=== PATIENT | female | born 1960 | race Caucasian/White ===

== ENCOUNTER 2018-01-24 19:10 | Emergency (ER) | payer MEDICARE, OTHER, MEDICAID ==
[~2018-01-24] VITALS: Ht 170.1 cm; Wt 90.7 kg
[~2018-01-24 19:10] MED LIST: ALPRAZOLAM0.25 M2 PO; FLEXERIL10 MG PO; GABAPENTIN TAB600 MG PO; KEPPRA500 MG PO; LEVOTHYROXIN0.075 M1 PO; MEDROL DOSEPAK4 MG PO; METHOCARBAMOL500 M1 PO; MORPHINE SULFAT15 M7 PO; OXYCODONE HCL5 MG PO; PANTOPRAZOLE SO40 MG PO; TRAZADONE HYDR100 MG PO; VICODIN 500 MG-1 TAB PO
== END 2018-01-24 23:26 | disposition short-term general hospital (02) ==
LOC: ED 19:10
DX: S82.832A Other fracture of upper and lower end of left fibula, initial encounter for closed fracture (principal); S82.142A Displaced bicondylar fracture of left tibia, initial encounter for closed fracture; K21.9 Gastro-esophageal reflux disease without esophagitis; G89.29 Other chronic pain; E03.9 Hypothyroidism, unspecified; E11.9 Type 2 diabetes mellitus without complications; Z98.890 Other specified postprocedural states; Z90.49 Acquired absence of other specified parts of digestive tract; Z90.710 Acquired absence of both cervix and uterus; Z79.899 Other long term (current) drug therapy; W10.8XXA Fall (on) (from) other stairs and steps, initial encounter; Y93.89 Activity, other specified; Y92.89 Other specified places as the place of occurrence of the external cause; Y99.9 Unspecified external cause status

== ENCOUNTER 2022-12-27 02:19 | Inpatient (IN) | payer OTHER ==
[~2022-12-27] VITALS: Ht 172.7 cm; Wt 92.8 kg
[2022-12-27] VITALS (7 sets, daily range): BP systolic 115–148; BP diastolic 56–70
[2022-12-27 02:43] LABS: BASO % 0.5 % (0.0-1.0); EOS # 0.1 10*3/uL (0.0-0.4); EOS % 1.1 % (1.0-4.0); HEMATOCRIT 35.5 % (37.0-47.0); LYMPH # 1.2 10*3/uL (1.3-4.4); LYMPH % 18.7 % (27.0-41.0); MEAN CELL VOLUME 83.7 fl (81.0-99.0); MEAN CORPUSCULAR HGB 27.6 pg (27.0-31.0); MEAN PLATELET VOLUME 9.8 fl (9.6-12.3); MONO # 0.6 10*3/uL (0.1-1.0); MONO % 9.8 % (3.0-9.0); NEUT # 4.5 10*3/uL (2.3-7.9); NEUT % 69.4 % (47.0-73.0); PLATELET COUNT AUTOMATED 218 10*3/uL (130-400); RED BLOOD COUNT 4.24 10*6/uL (4.10-5.10); RED CELL DISTRI WIDTH 13.5 % (0-14.5); WHITE BLOOD COUNT 6.4 10*3/uL (4.8-10.8)
[2022-12-27] MEDS ORDERED: LEVOTHYROXINE75 MCG PO (02:53)
[2022-12-27] MEDS ORDERED: IBU800 M1 PO (02:53)
[2022-12-27 02:54] LABS: BILIRUBIN Negative (Negative); BLOOD Negative (Negative); CLARITY Clear (Clear); COLOR Yellow (Yellow); GLUCOSE Negative (Negative); KETONE 3+ (Negative); LEUKO ESTERASE 1+ (Negative); NITRITE Negative (Negative)
[2022-12-27] MEDS ORDERED: ESOMEPRAZOLE MA40 M1 PO (02:54)
[2022-12-27] MEDS ORDERED: ONDANSETRON HYDR4 M1 PO (02:54)
[2022-12-27] MEDS ORDERED: BUPRENORPHINE HY8 MG SL (02:55)
[2022-12-27] MEDS ORDERED: GABAPENTIN800 MG PO (02:55)
[2022-12-27] MEDS ORDERED: METFORMIN HYD1000 MG PO (02:56)
[2022-12-27 02:59] LABS: ALKALINE PHOSPHATASE 177 U/L (46-116); BUN 9 mg/dl (9-23); CHLORIDE 94 mmol/L (98-107); POTASSIUM 3.6 mmol/L (3.4-5.1); SGPT/ALT 26 U/L (10-49); TOTAL PROTEIN 9.1 gm/dL (6.0-8.0)
[2022-12-27 03:01] LABS: EPITHELIAL CELLS 21-30
[2022-12-27 03:02] LABS: BACTERIA 1+
[2022-12-27] MEDS ORDERED: TRIAMTERENE & H1 CAP PO (03:29)
[2022-12-27] MEDS ORDERED: NAMZARIC 28 MG1 EACH PO (03:29)
[2022-12-27] MEDS ORDERED: METHOCARBAMOL750 M1 PO (03:31)
[2022-12-27 08:18] LABS: BUN 8 mg/dl (9-23); CHLORIDE 102 mmol/L (98-107)
[2022-12-27 08:24] LABS: FREE T4 0.74 ng/dl (0.89-1.76); THYROID STIM HORMONE (HS) 0.886 uIU/ml (0.550-4.780)
[2022-12-27 08:54] LABS: VITAMIN D, 25-HYDROXY 31.7 ng/mL (30-100)
[2022-12-27 11:42] LABS: BILIRUBIN Negative (Negative); BLOOD Negative (Negative); CLARITY Clear (Clear); COLOR Yellow (Yellow); GLUCOSE Negative (Negative); KETONE 2+ (Negative); LEUKO ESTERASE Negative (Negative); NITRITE Negative (Negative)
[2022-12-27 12:09] LABS: BACTERIA TRACE; RBC 0-2 rbc/hpf (0-2); WBC 0-2 wbc/hpf (0-5)
[2022-12-28] VITALS: BP 111/58
[2022-12-28 07:05] LABS: BASO % 0.8 % (0.0-1.0); EOS # 0.1 10*3/uL (0.0-0.4); EOS % 2.1 % (1.0-4.0); HEMATOCRIT 37.4 % (37.0-47.0); LYMPH # 1.4 10*3/uL (1.3-4.4); LYMPH % 29.2 % (27.0-41.0); MEAN CORPUSCULAR HGB 27.3 pg (27.0-31.0); MEAN CORPUSCULAR HGB CONC 32.1 g/dl (33.0-37.0); MEAN PLATELET VOLUME 10.2 fl (9.6-12.3); MONO # 0.5 10*3/uL (0.1-1.0); MONO % 9.5 % (3.0-9.0); NEUT # 2.8 10*3/uL (2.3-7.9); NEUT % 58.2 % (47.0-73.0); PLATELET COUNT AUTOMATED 199 10*3/uL (130-400); RED CELL DISTRI WIDTH 13.8 % (0-14.5); WHITE BLOOD COUNT 4.8 10*3/uL (4.8-10.8)
[2022-12-28 08:00] VITALS: BP 100/60
[2022-12-28 08:17] LABS: ALKALINE PHOSPHATASE 168 U/L (46-116); BUN 9 mg/dl (9-23); CHLORIDE 95 mmol/L (98-107); POTASSIUM 3.4 mmol/L (3.4-5.1); SGPT/ALT 27 U/L (10-49); TOTAL PROTEIN 8.7 gm/dL (6.0-8.0)
[2022-12-28 12:00] VITALS: BP 105/48
[2022-12-28 16:00] VITALS: BP 105/47
[2022-12-28 20:00] VITALS: BP 103/50
[2022-12-29] VITALS: BP 99/59
[2022-12-29 05:47] LABS: BUN 6 mg/dl (9-23); CHLORIDE 104 mmol/L (98-107)
[2022-12-29 08:00] VITALS: BP 108/55
[2022-12-29] MEDS ORDERED: OMNICEF300 MG PO ×2 (10:45→11:45)
== END 2022-12-29 11:44 | disposition home or self-care (01) | DRG 640 ==
LOC: ED 02:19 → EDHOLD 03:38 → 4E 03:38 → EDHOLD 04:33 → 4E 04:41
PROVIDERS: Emergency Medicine; Student in an Organized Health Care Education/Training Program; ADMIT Internal Medicine; ATTEND Internal Medicine
DX: E87.1 Hypo-osmolality and hyponatremia (principal); G93.41 Metabolic encephalopathy; N39.0 Urinary tract infection, site not specified; G93.89 Other specified disorders of brain; D49.7 Neoplasm of unspecified behavior of endocrine glands and other parts of nervous system; T50.2X5A Adverse effect of carbonic-anhydrase inhibitors, benzothiadiazides and other diuretics, initial encounter; G89.29 Other chronic pain; M54.9 Dorsalgia, unspecified; E11.69 Type 2 diabetes mellitus with other specified complication; I10 Essential (primary) hypertension; D64.9 Anemia, unspecified; E87.6 Hypokalemia; Y92.89 Other specified places as the place of occurrence of the external cause; Z90.49 Acquired absence of other specified parts of digestive tract; Z90.710 Acquired absence of both cervix and uterus; Z82.49 Family history of ischemic heart disease and other diseases of the circulatory system; Z83.3 Family history of diabetes mellitus; Z79.84 Long term (current) use of oral hypoglycemic drugs; Z79.899 Other long term (current) drug therapy

== ENCOUNTER 2024-08-27 12:41 | Emergency (ER) | payer OTHER ==
[~2024-08-27] VITALS: Ht 170.1 cm; Wt 83.9 kg
[~2024-08-27 12:41] MED LIST changes: +BUPRENORPHINE HY8 MG SL; +ESOMEPRAZOLE MA40 M1 PO; +GABAPENTIN800 MG PO; +IBU800 M1 PO; +LEVOTHYROXINE75 MCG PO; +METFORMIN HYD1000 MG PO; +METHOCARBAMOL750 M1 PO; +NAMZARIC 28 MG1 EACH PO; +OMNICEF300 MG PO; +ONDANSETRON HYDR4 M1 PO; +TRIAMTERENE & H1 CAP PO
[2024-08-27] MEDS ORDERED: SODIUM CHLORIDE 0.9% 1,000 ML IV ONE (13:10)
[2024-08-27] MEDS ORDERED: MORPHINE Sulfate 2 MG/ML SYR IV ONE (13:10)
[2024-08-27] MEDS ORDERED: Ondansetron Hydrochloride 4 MG/2 ML VIAL IV ONE (13:10)
[2024-08-27 13:27] LABS: BASO % 0.3 % (0.0-1.0); EOS # 0.1 10*3/uL (0.0-0.4); HEMATOCRIT 29.4 % (37.0-47.0); MEAN CELL VOLUME 88.8 fl (81.0-99.0); MEAN CORPUSCULAR HGB 26.6 pg (27.0-31.0); MEAN CORPUSCULAR HGB CONC 29.9 g/dl (33.0-37.0); MEAN PLATELET VOLUME 9.9 fl (9.6-12.3); MONO # 0.2 10*3/uL (0.1-1.0); MONO % 7.7 % (3.0-9.0); NEUT # 1.7 10*3/uL (2.3-7.9); PLATELET COUNT AUTOMATED 144 10*3/uL (130-400); RED BLOOD COUNT 3.31 10*6/uL (4.10-5.10); RED CELL DISTRI WIDTH 15.4 % (0-14.5)
[2024-08-27 13:47] LABS: BUN 13 mg/dl (9-23); CHLORIDE 107 mmol/L (98-107); POTASSIUM 4.6 mmol/L (3.4-5.1)
[2024-08-27] MEDS ORDERED: TRAMADOL HCL50 MG PO (15:25)
== END 2024-08-27 15:33 | disposition home or self-care (01) ==
LOC: ED 12:41
PROVIDERS: Emergency Medicine
DX: S30.1XXA Contusion of abdominal wall, initial encounter (principal); K74.60 Unspecified cirrhosis of liver; E11.9 Type 2 diabetes mellitus without complications; I10 Essential (primary) hypertension; E78.5 Hyperlipidemia, unspecified; Z90.49 Acquired absence of other specified parts of digestive tract; Z90.710 Acquired absence of both cervix and uterus; Z90.89 Acquired absence of other organs; Z98.890 Other specified postprocedural states; W01.190A Fall on same level from slipping, tripping and stumbling with subsequent striking against furniture, initial encounter; Y93.89 Activity, other specified; Y92.89 Other specified places as the place of occurrence of the external cause; Y99.8 Other external cause status

== ENCOUNTER 2024-11-05 15:41 | Emergency (ER) | payer OTHER, MEDICARE ==
[~2024-11-05] VITALS: Ht 172.7 cm; Wt 86.2 kg
[~2024-11-05 15:41] MED LIST changes: +TRAMADOL HCL50 MG PO
[2024-11-05 19:21] LABS: BILIRUBIN Negative (Negative); BLOOD Negative (Negative); CLARITY Clear (Clear); COLOR Dark Yellow (Yellow); GLUCOSE Negative (Negative); KETONE Trace (Negative); LEUKO ESTERASE Negative (Negative); NITRITE Negative (Negative); PH 6.5 (4.5-8.0); SPECIFIC GRAVITY >= 1.030 (1.001-1.030)
[2024-11-05 19:35] LABS: BACTERIA 1+
[2024-11-05] MEDS ORDERED: MACROBID100 M1 PO (19:39)
[2024-11-05] MEDS ORDERED: Nitrofurantoin Monohydrate/N 100 MG CAP PO ONE (19:40)
== END 2024-11-05 20:03 | disposition home or self-care (01) ==
LOC: ED 15:41
PROVIDERS: Physician Assistant Medical
DX: N39.0 Urinary tract infection, site not specified (principal); Z79.2 Long term (current) use of antibiotics; Z79.899 Other long term (current) drug therapy; Z98.890 Other specified postprocedural states; Z90.49 Acquired absence of other specified parts of digestive tract; Z90.711 Acquired absence of uterus with remaining cervical stump; Z90.89 Acquired absence of other organs

== ENCOUNTER 2025-06-07 16:03 | Emergency (ER) | payer OTHER ==
[~2025-06-07] VITALS: Ht 170.1 cm; Wt 81.6 kg
[~2025-06-07 16:03] MED LIST changes: +MACROBID100 M1 PO
[2025-06-07 19:51] LABS: BASO # 0.0 10*3/uL (0.0-0.1); BASO % 0.3 % (0.0-1.0); EOS # 0.1 10*3/uL (0.0-0.4); EOS % 1.6 % (1.0-4.0); MEAN CELL VOLUME 87.3 fl (81.0-99.0); MEAN CORPUSCULAR HGB 26.0 pg (27.0-31.0); MEAN PLATELET VOLUME 9.8 fl (9.6-12.3); MONO # 0.6 10*3/uL (0.1-1.0); MONO % 9.5 % (3.0-9.0); NEUT # 4.5 10*3/uL (2.3-7.9); NEUT % 74.1 % (47.0-73.0); NUCLEATED RED BLOOD CELL 0.0 % (0.0-0.0); NUCLEATED RED BLOOD CELL 0.0 10*3/uL (0.0-0.0); PLATELET COUNT AUTOMATED 136 10*3/uL (130-400); RED CELL DISTRI WIDTH 20.4 % (0-14.5)
[2025-06-07 20:14] LABS: BUN 24.0 mg/dl (9-23); SGPT/ALT 18.0 U/L (5-49)
[2025-06-07 20:35] LABS: BILIRUBIN Negative (Negative); BLOOD Negative (Negative); CLARITY Clear (Clear); COLOR Dark Yellow (Yellow); KETONE Trace (Negative); LEUKO ESTERASE Trace (Negative); NITRITE Negative (Negative); PH 5.5 (4.5-8.0); SPECIFIC GRAVITY >= 1.030 (1.001-1.030); UROBILINOGEN 1.0 E.U./dl (0.0-1.0)
[2025-06-07 20:50] LABS: BACTERIA 1+
[2025-06-07] MEDS ORDERED: metroNIDAZOLE 500 MG TAB PO ONE (23:20)
[2025-06-07] MEDS ORDERED: predniSONE 20 MG TAB PO ONE (23:20)
[2025-06-07] MEDS ORDERED: PREDNISONE20 M1 PO (23:30)
[2025-06-07] MEDS ORDERED: METRONIDAZOLE500 M1 PO (23:30)
== END 2025-06-07 23:50 | disposition home or self-care (01) ==
LOC: ED 16:03
DX: K52.9 Noninfective gastroenteritis and colitis, unspecified (principal); D64.9 Anemia, unspecified; K59.00 Constipation, unspecified; E88.09 Other disorders of plasma-protein metabolism, not elsewhere classified; E46 Unspecified protein-calorie malnutrition; E66.9 Obesity, unspecified; E11.9 Type 2 diabetes mellitus without complications; K21.9 Gastro-esophageal reflux disease without esophagitis; E03.9 Hypothyroidism, unspecified; Z90.710 Acquired absence of both cervix and uterus; Z98.890 Other specified postprocedural states; Z90.49 Acquired absence of other specified parts of digestive tract; Z90.89 Acquired absence of other organs; Z87.440 Personal history of urinary (tract) infections